=== PATIENT | male | born 1990 | race Caucasian/White ===

== ENCOUNTER → 2017-08-15 | Outpatient (CLI) | payer MEDICARE | END | disposition home or self-care (01) | LOC: LABWHC1 08:10 | PROVIDERS: ATTEND Internal Medicine Endocrinology, Diabetes & Metabolism | DX: E29.1 Testicular hypofunction (principal) | CPT/HCPCS: 36415; 82024; 82533; 84146 ==

== ENCOUNTER 2017-09-01 19:54 | Emergency (ER) | payer MEDICARE ==
[2017-09-01] MEDS ORDERED: METOCLOPRAMIDE 5 MG/ML 2 ML VIAL IVP STA (20:27)
[2017-09-01] MEDS ORDERED: SODIUM CHLORIDE 0.9% 1,000 ML IV STA (20:27)
[2017-09-01] MEDS ORDERED: ACETAMINOPHEN TAB 500 MG TAB PO STA (20:27)
[2017-09-01] MEDS ORDERED: KETOROLAC 30 MG/ML 1 ML VIAL IVP STA (20:27)
[2017-09-01] MEDS ORDERED: diphenhydrAMINE 50 MG/ML 1 ML VIAL IVP STA (20:27)
[2017-09-01 20:47] LABS: Basophils % (A) 1 %; Eosinophils # (A) 0.2 k/uL (0-0.7); Eosinophils % (A) 3 %; HCT 44.9 % (39.0-53.0); HGB 15.2 gm/dL (13.0-17.5); Lymphocytes # (A) 1.8 k/uL (1.0-4.8); Lymphocytes % (A) 29 %; MCH 29.5 pg (25.0-35.0); MCHC 33.7 g/dL (31.0-37.0); MCV 87.5 fL (80.0-100.0); Mean Platelet Volume 7.2; Monocytes # (A) 0.5 k/uL (0-1.0); Monocytes % (A) 7 %; Neutrophils # (A) 3.6 k/uL (1.3-7.7); Neutrophils % (A) 58 %; Platelet Count 266 k/uL (150-450); RBC 5.14 m/uL (4.30-5.90); RDW 12.6 % (11.5-15.5); WBC 6.2 k/uL (3.8-10.6)
[2017-09-01 20:53] LABS: Anion Gap 14 mmol/L; Blood Urea Nitrogen 8 mg/dL (9-20); Carbon Dioxide 26 mmol/L (22-30); Chloride 104 mmol/L (98-107); Glucose 103 mg/dL (74-99); Potassium 3.6 mmol/L (3.5-5.1); Sodium 144 mmol/L (137-145)
--- NOTE | 2017-09-01 21:13 | ED ---
Headache HPI - General Chief Complaint: Headache Stated Complaint: Mirgraine Time Seen by Provider: 09/01/17 20:14 Source: RN notes reviewed, old records reviewed Mode of arrival: ambulatory Limitations: no limitations - History of Present Illness Initial Comments: This is a 26-year-old male presents to the emergency department today chief complaint of headache. His had this headache for a week. 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 He recently moved here from [facility]. Patient states that he had an MRI last week which was reviewed and was unremarkable. He states he has another MRI scheduled and tomorrow for pituitary MRI. - Related Data Home Medications Medication Instructions Recorded Confirmed Acetaminophen Tab [Tylenol Tab] 650 mg PO Q4H PRN 09/01/17 09/01/17 Aspirin/Acetaminophen/Caffeine 1 tab PO Q6HR PRN 09/01/17 09/01/17 [Excedrin Migraine Caplet] Previous Rx's Medication Instructions Recorded Butalb/APAP/Caff 50-325-40Mg 2 tab PO Q4H PRN #10 tablet 09/01/17 [Fioricet 50-325-40] Allergies Allergy/AdvReac Type Severity Reaction Status Date / Time No Known Allergies Allergy Verified 09/01/17 20:16 Review of Systems ROS Statement: Those systems with pertinent positive or pertinent negative responses have been documented in the HPI. ROS Other: All systems not noted in ROS Statement are negative. Past Medical History Past Medical History: No Reported History History of Any Multi-Drug Resistant Organisms: None Reported Past Surgical History: Adenoidectomy Past Psychological History: No Psychological Hx Reported Smoking Status: Current every day smoker Past Alcohol Use History: Occasional Past Drug Use History: Marijuana General Exam - General Exam Comments Initial Comments: Alert and oriented 26-year-old male. No significant distress. Limitations: no limitations General appearance: alert, in no apparent distress Head exam: Present: atraumatic, normocephalic, normal inspection Eye exam: Present: normal appearance, PERRL, EOMI. Absent: scleral icterus, conjunctival injection, periorbital swelling ENT exam: Present: normal exam, mucous membranes moist Neck exam: Present: normal inspection. Absent: tenderness, meningismus, lymphadenopathy Respiratory exam: Present: normal lung sounds bilaterally. Absent: respiratory distress, wheezes, rales, rhonchi, stridor Cardiovascular Exam: Present: regular rate, normal rhythm, normal heart sounds. Absent: systolic murmur, diastolic murmur, rubs, gallop, clicks GI/Abdominal exam: Present: soft, normal bowel sounds. Absent: distended, tenderness, guarding, rebound, rigid Extremities exam: Present: normal inspection, full ROM, normal capillary refill. Absent: tenderness, pedal edema, joint swelling, calf tenderness Back exam: Present: normal inspection Neurological exam: Present: alert, oriented X3, CN II-XII intact Psychiatric exam: Present: normal affect, normal mood Skin exam: Present: warm, dry, intact, normal color. Absent: rash Course Vital Signs 09/01/17 09/01/17 09/01/17 20:00 21:36 23:47 Temperature 98.3 F 98.4 F Pulse Rate 108 H 84 63 Respiratory 18 15 18 Rate Blood Pressure 146/68 107/63 121/64 O2 Sat by Pulse 99 97 99 Oximetry Medical Decision Making - Medical Decision Making This patient's a 26-year-old male chief complaint migraine headache. He had an MRI done earlier in the week. He has no neurological deficits at this time. States he feels like his blood pressure on his head. No meningeal signs. Patient's mother was normal. I discussed benefit of computed tomography scan. He states that he with recent MRI 120 does not want to pursue CT at this time. I agree with this is Patient does have no deficits. He was given migraine cocktail reports little relief. Patient will be DC with intent for MRI tomorrow from PCP and discussed other medication to try for headache. REturn parameters discussed. - Lab Data Result diagrams: 09/01/17 20:29 09/01/17 20:29 Lab Results 09/01/17 09/01/17 Range/Units 20:29 20:29 WBC 6.2 (3.8-10.6) k/uL RBC 5.14 (4.30-5.90) m/uL Hgb 15.2 (13.0-17.5) gm/dL Hct 44.9 (39.0-53.0) % MCV 87.5 (80.0-100.0) fL MCH 29.5 (25.0-35.0) pg MCHC 33.7 (31.0-37.0) g/dL RDW 12.6 (11.5-15.5) % Plt Count 266 (150-450) k/uL Neutrophils % 58 % Lymphocytes % 29 % Monocytes % 7 % Eosinophils % 3 % Basophils % 1 % Neutrophils # 3.6 (1.3-7.7) k/uL Lymphocytes # 1.8 (1.0-4.8) k/uL Monocytes # 0.5 (0-1.0) k/uL Eosinophils # 0.2 (0-0.7) k/uL Basophils # 0.0 (0-0.2) k/uL Sodium 144 (137-145) mmol/L Potassium 3.6 (3.5-5.1) mmol/L Chloride 104 (98-107) mmol/L Carbon Dioxide 26 (22-30) mmol/L Anion Gap 14 mmol/L BUN 8 L (9-20) mg/dL Creatinine 0.69 (0.66-1.25) mg/dL Est GFR (CKD-EPI)AfAm >90 (>60 ml/min/1.73 sqM) Est GFR (CKD-EPI)NonAf >90 (>60 ml/min/1.73 sqM) Glucose 103 H (74-99) mg/dL Calcium 10.0 (8.4-10.2) mg/dL Disposition Clinical Impression: Migraine Disposition: HOME SELF-CARE Condition: Good Instructions: Acute Headache (ED) Additional Instructions: Patient has a follow-up with primary care provider and complete her MRI scheduled tomorrow. Return to emergency department if any alarming signs or symptoms occur. Prescriptions: Butalb/APAP/Caff 50-325-40Mg [Fioricet 50-325-40] 2 tab PO Q4H PRN #10 tablet PRN Reason: Pain Is patient prescribed a controlled substance at d/c from ED?: No When asked, does pt state using other controlled substances?: No If prescribed controlled substance>3 days was MAPS reviewed?: No If opioid is for acute pain is fill amount 7 days or less?: No If Rx opioid, was Start Talking consent form obtained?: No Referrals: None,Stated [Primary Care Provider] - 1-2 days Time of Disposition: 23:04
[2017-09-01] MEDS ORDERED: ORPHENADRINE 30 MG/ML 2 ML VIAL IVP STA (21:48)
[2017-09-01] MEDS ORDERED: DEXAMETHASONE SOD PHOSPHATE 10 MG/ML 1 ML VIAL IV STA (22:50)
[2017-09-01] MEDS ORDERED: BUTA/APAP/CAF/COD 50-325-40-30 CAP PO STA (23:12)
[2017-09-01 23:48] VITALS: BP 121/64; PULSE 63; RESP 18; TEMP 98.4
== END 2017-09-01 23:48 | disposition home or self-care (01) ==
LOC: EC 19:54
DX: G43.909 Migraine, unspecified, not intractable, without status migrainosus (principal); F17.200 Nicotine dependence, unspecified, uncomplicated
CPT/HCPCS: 99284; 96374; 96375 ×4; 96361; 36415; 80048; 85025; J1200; J1100; J2360; J2765; J1885

== ENCOUNTER 2017-10-03 10:15 | Emergency (ER) | payer MEDICARE, OTHER ==
[2017-10-03 10:31] VITALS: BP 112/72; PULSE 84; RESP 16; TEMP 98.5
--- NOTE | 2017-10-03 10:45 | ED ---
ENT HPI - General Chief complaint: Dental/Oral Stated complaint: Tooth/Oral Pain Time Seen by Provider: 10/03/17 10:34 Source: patient, RN notes reviewed, old records reviewed Mode of arrival: ambulatory Limitations: no limitations - History of Present Illness Initial comments: 26-year-old male with no significant past medical history presents with 2 weeks of worsening left upper tooth pain. Patient does have poor dentition. He has an appointment to follow up with a dentist in 2 weeks. Pain has been steadily worsening. Denies any swelling. Denies drainage. Denies fever or chills. No other complaints. No chest pain or shortness breath. No nausea vomiting or diarrhea. MD complaint: tooth pain - Related Data Home Medications Medication Instructions Recorded Confirmed Acetaminophen Tab [Tylenol Tab] 650 mg PO Q4H PRN 09/01/17 09/01/17 Aspirin/Acetaminophen/Caffeine 1 tab PO Q6HR PRN 09/01/17 09/01/17 [Excedrin Migraine Caplet] Previous Rx's Medication Instructions Recorded Butalb/APAP/Caff 50-325-40Mg 2 tab PO Q4H PRN #10 tablet 09/01/17 [Fioricet 50-325-40] Amoxicillin 500 mg PO TID #30 cap 10/03/17 Ibuprofen [Motrin] 600 mg PO Q8HR PRN #24 tab 10/03/17 Allergies Allergy/AdvReac Type Severity Reaction Status Date / Time No Known Allergies Allergy Verified 10/03/17 10:31 Review of Systems ROS Statement: Those systems with pertinent positive or pertinent negative responses have been documented in the HPI. ROS Other: All systems not noted in ROS Statement are negative. Past Medical History Past Medical History: No Reported History History of Any Multi-Drug Resistant Organisms: None Reported Past Surgical History: Adenoidectomy Past Psychological History: No Psychological Hx Reported Smoking Status: Current every day smoker Past Alcohol Use History: Occasional Past Drug Use History: Marijuana General Exam Limitations: no limitations General appearance: alert, in no apparent distress Head exam: Present: atraumatic, normocephalic Eye exam: Present: normal appearance, PERRL Expanded Mouth exam: Present: tongue normal. Absent: trismus, muffled voice Teeth exam: Present: dental caries (14, 15), fractured tooth # Throat exam: normal inspection Respiratory exam: Present: normal lung sounds bilaterally. Absent: respiratory distress, wheezes Cardiovascular Exam: Present: regular rate, normal rhythm GI/Abdominal exam: Present: soft. Absent: distended, tenderness Course Vital Signs 10/03/17 10:29 Temperature 98.5 F Pulse Rate 84 Respiratory 16 Rate Blood Pressure 112/72 O2 Sat by Pulse 99 Oximetry Medical Decision Making - Medical Decision Making 26-year-old male with dental caries and worsening dental pain. This is an tooth #14 and 15. No signs of abscess. No swelling. No fever. Patient is otherwise well-appearing. ARDS appointment with his dentist in 2 weeks. He will be started on amoxicillin and motrin for pain. Disposition Clinical Impression: Dental caries Disposition: HOME SELF-CARE Condition: Good Instructions: Dental Caries (ED), Toothache (ED) Additional Instructions: Please follow up with your dentist. Prescriptions: Amoxicillin 500 mg PO TID #30 cap Ibuprofen [Motrin] 600 mg PO Q8HR PRN #24 tab PRN Reason: Pain Is patient prescribed a controlled substance at d/c from ED?: No Referrals: None,Stated [Primary Care Provider] - 1-2 days Time of Disposition: 10:45
== END 2017-10-03 11:05 | disposition home or self-care (01) ==
LOC: EC 10:15
DX: K02.9 Dental caries, unspecified (principal); F17.200 Nicotine dependence, unspecified, uncomplicated
CPT/HCPCS: 99283

== ENCOUNTER 2017-10-20 12:19 | Emergency (ER) | payer MEDICARE, OTHER ==
[2017-10-20 12:34] VITALS: BP 116/74; PULSE 90; RESP 16; TEMP 98.7
--- NOTE | 2017-10-20 13:21 | ED ---
Recheck HPI - General Chief Complaint: Recheck/Abnormal Lab/Rx Stated Complaint: need med refills Time Seen by Provider: 10/20/17 12:45 Source: patient, RN notes reviewed Mode of arrival: ambulatory Limitations: no limitations - History of Present Illness Initial Comments: This is a 26-year-old male who presents to the emergency department with request for medication refills. Patient states that he has been off of his Klonopin, Lamictal and Celexa for the past month and a half. He states that he was recently released from half-way. He states that he feels like he needs to be back on the medications. He states that he did call his psychiatrist who is located in [place] and he refused to fill the medications for him. Patient states that he came to the emergency department with request for refills because he does not have his identification card on him and cannot follow up with his primary care physician. Denies any recent illnesses or infections. Denies fevers or chills, chest pain shortness breath, abdominal pain, nausea or vomiting. - Related Data Previous Rx's Medication Instructions Recorded Citalopram Hydrobromide [CeleXA] 20 mg PO DAILY #14 tab 10/20/17 lamoTRIgine [LaMICtal] 150 mg PO DAILY #14 tab 10/20/17 Allergies Allergy/AdvReac Type Severity Reaction Status Date / Time No Known Allergies Allergy Verified 10/20/17 12:34 Review of Systems ROS Statement: Those systems with pertinent positive or pertinent negative responses have been documented in the HPI. ROS Other: All systems not noted in ROS Statement are negative. Past Medical History Past Medical History: No Reported History History of Any Multi-Drug Resistant Organisms: None Reported Past Surgical History: Adenoidectomy Past Psychological History: Anxiety, Bipolar, Depression Smoking Status: Current every day smoker Past Alcohol Use History: Occasional Past Drug Use History: Marijuana General Exam - General Exam Comments Initial Comments: General: Awake and alert, well-developed; in no apparent distress. HEENT: Head atraumatic, normocephalic. Pupils are equal, round and reactive to light. Extraocular movements intact. Oropharynx moist without erythema or exudate. Neck: Supple. Normal ROM. Cardiovascular: Regular rate and rhythm. No murmurs, rubs or gallops. Chest symmetrical. Respiratory: Lungs clear to auscultation bilaterally. No wheezes, rales or rhonchi. Normal respiratory effort with no use of accessory muscles. Musculoskeletal: Normal ROM, no tenderness bilateral upper and lower extremities. Ambulating normally. Skin: [place], warm and dry without rashes or lesions. Neurological: Alert and oriented x3. CN II-XII grossly intact. Speech is fluent and answers are appropriate. No focal neuro deficits. Psychiatric: Normal mood and affect. No overt signs of depression or anxiety noted. Limitations: no limitations Course Vital Signs 10/20/17 12:31 Temperature 98.7 F Pulse Rate 90 Respiratory 16 Rate Blood Pressure 116/74 O2 Sat by Pulse 100 Oximetry Medical Decision Making - Medical Decision Making This is a 26-year-old male who presents to the emergency department with request for medication refill. Patient states that he has been out of his Lamictal, Klonopin and Celexa for the past month and a half. Patient states that he was in half-way. He states he has been unable to follow-up with Dr. Pichardo , his psychiatrist. Patient requests to have his medications refilled until he is able to follow-up. He states that Dr. Pichardo is located in [place] and has not had a ride to the office. Patient states he receives his medications from [facility] on [address] in [place]. They were contacted and the last prescriptions patient was given by Dr. Pichardo were Celexa 20 mg, Lamictal 150 mg and Klonopin 1 mg twice a day. This was refilled in July. MAPS was run patient did receive 60 tablets of Valium on October 09, a 30 day supply. Patient will be provided with a 2 week refill of the Celexa and Lamictal but will not be receiving any benzos. Patient is in agreement with this. He states he will follow-up with his psychiatrist. Vitals are stable and he is in no acute distress. He will be discharged home at this time. Disposition Clinical Impression: Encounter for medication refill Disposition: HOME SELF-CARE Condition: Good Instructions: Medicine Refill (ED) Additional Instructions: Please follow-up with your psychiatrist as soon as possible for further refills. You will not receive any further refills from the emergency department at this time. Please follow up with primary care provider within 1-2 days. Return to emergency department if symptoms should worsen or any concerns arise. Prescriptions: Citalopram Hydrobromide [CeleXA] 20 mg PO DAILY #14 tab lamoTRIgine [LaMICtal] 150 mg PO DAILY #14 tab Is patient prescribed a controlled substance at d/c from ED?: No Referrals: None,Stated [Primary Care Provider] - 1-2 days Time of Disposition: 13:26
== END 2017-10-20 13:37 | disposition home or self-care (01) ==
LOC: EC 12:19
DX: Z76.0 Encounter for issue of repeat prescription (principal); F17.200 Nicotine dependence, unspecified, uncomplicated
CPT/HCPCS: 99282